=== PATIENT | male | born 1970 | race Hispanic/Latino ===

== ENCOUNTER 2017-02-09 12:48 | Emergency (ER) | payer OTHER ==
[2017-02-09] MEDS ORDERED: Sodium Bicarbonate 2.4 MEQ/5 ML ONE (13:16)
[2017-02-09] MEDS ORDERED: Lidocaine 1% 20 ML MDV ONE (13:17)
[2017-02-09] MEDS ORDERED: Adacel (T-DAP) 0.5 ML VIAL ONE (13:22)
--- NOTE | 2017-02-09 14:01 | RAD ---
THREE VIEWS LEFT HAND: HISTORY: Patient with trauma, cut to medial and lateral left hand. FINDINGS: AP, lateral, and oblique views of left hand are obtained. No evidence of left hand fractures, subluxations, or bony lesions seen. IMPRESSION: Normal 3 views left hand. POS: [facility]
== END 2017-02-09 14:05 | disposition home or self-care (01) ==
LOC: NAV ERS 12:48
DX: S61.412A Laceration without foreign body of left hand, initial encounter (principal); F17.200 Nicotine dependence, unspecified, uncomplicated; W26.8XXA Contact with other sharp object(s), not elsewhere classified, initial encounter; Y99.0 Civilian activity done for income or pay
CPT/HCPCS: 12002; 90471; 90715; 99001; J2001